=== PATIENT | female | born 1975 | race American Indian/Alaskan Native ===

== ENCOUNTER 2017-10-25 16:24 | Emergency (ER) | payer OTHER ==
[2017-10-25] MEDS ORDERED: NORCO 5/325 PO ONE (21:16)
[2017-10-25] MEDS ORDERED: TRIPLE ANTIBIOTIC TP ONE (21:17)
[2017-10-25] MEDS ORDERED: MOTRIN PO ONE (21:17)
[2017-10-25] MEDS ORDERED: BOOSTRIX IM ONE (21:17)
[2017-10-25] MEDS ORDERED: XYLOCAINE 2% INFILTRATI ONE (21:18)
--- NOTE | 2017-10-25 21:18 | Emergency Department Report ---
ED Laceration [facility] Chief Complaint: Wound/Laceration Stated Complaint: RIGHT MIDDLE FINGER LACERATION Time Seen by Provider: 10/25/17 21:16 Occurred When: Today Location: Upper Extremity (right distal middle finger) Tetanus Status: Not up to Date Laceration Symptoms: Yes Pain, No Foreign Body Sensation, No Numbness, No Weakness Other History: 42-year-old female past medical history none presents with laceration to right distal middle fingertip. Patient works in a [employer] and states that she cut the fingertip on a soaker meat today. Patient has visible laceration at distal end of middle fingertip at edge of the nail. Active bleeding. Tetanus shot vaccination status not up-to-date as per patient. Denies any other injuries ED Review of Systems ROS: Stated complaint: RIGHT MIDDLE FINGER LACERATION Other details as noted in HPI ED Past Medical Hx - Past Medical History Previous Medical History?: No - Surgical History Past Surgical History?: No - Social History Smoking Status: Current Every Day Smoker Substance Use Type: None - Medications Home Medications: Home Medications Medication Instructions Recorded Confirmed Last Taken Type Acetaminophen/Codeine [Tylenol 1 tab PO Q6H PRN #10 tab 10/25/17 Unknown Rx /Codeine # 3 tab] Cephalexin [Keflex] 500 mg PO Q12HR #14 cap 10/25/17 Unknown Rx Ibuprofen [Motrin] 600 mg PO Q8H PRN #30 tablet 10/25/17 Unknown Rx Laceration Physical Exam - Exam General: Vital signs noted. No distress. Alert and acting appropriately. Wound Length (cm): 2 Laceration Location: Upper Extremity (distal right middle fingertip) Laceration Exam: Yes Normal Distal CMS (finger range of motion PIP and MCP DIP and capillary refill fully intact on clinical exam no other hand injury visible) , No Foreign Body, No Exposed Tendon, Vessel, or Nerve, No Tendon Injury ED Course Vital Signs 10/25/17 16:28 Temperature 97.7 F Pulse Rate 82 Respiratory 16 Rate Blood Pressure 128/84 O2 Sat by Pulse 99 Oximetry - Laceration /Wound Repair Right Distal Finger Wound Location: upper extremity (distal right middle finger laceration below the nail edge not involving nail itself nail bed appears intact) Wound Length (cm): 2 Wound's Depth, Shape: linear Betadine Prep?: Yes Anesthesia: 1% Lidocaine Volume Anesthetic (ccs): 5 Wound Debrided: minimal Wound Repaired With: sutures Suture Size/Type: 3:0, nylon Number of Sutures: 6 Sterile Dressing Applied?: Yes ( triple antibiotic ointment, Steri-Strips, finger gauze) Progress: Digital block performed on right distal middle finger. Good local anesthesia achieved. Good closure of wound achieved with Prolene sutures. Small area closed using Steri-Strips. Procedure tolerated well with minimal bleeding. Cooperative with gauze afterward. ED Medical Decision Making - Medical Decision Making A/P: Right distal middle fingertip laceration 1-good closure of the wound achieved via sutures. Sutures to be removed in 10- 12days 2-tetanus updated today 3-Motrin when necessary, triple antibiotic ointment, short course Tylenol No. 3 when necessary, course of Keflex 4-patient advised to return to the ED for any fevers chills pus drainage erythema at site of laceration Critical care attestation.: If time is entered above; I have spent that time in minutes in the direct care of this critically ill patient, excluding procedure time. ED Disposition Clinical Impression: Laceration of finger Qualifiers: Encounter type: initial encounter Finger: middle finger Damage to nail status: without damage Foreign body presence: without foreign body Laterality: right Qualified Code(s): S61.212A - Laceration without foreign body of right middle finger without damage to nail, initial encounter Disposition: TO HOME OR SELFCARE Is pt being admited?: No Does the pt Need Aspirin: No Condition: Stable Instructions: Suture Care (ED), Laceration (ED), Acute Wound Care (ED), Finger Laceration (ED) Additional Instructions: Sutures to be removed in 10-12 days. Prescriptions: Acetaminophen/Codeine [Tylenol /Codeine # 3 tab] 1 tab PO Q6H PRN #10 tab PRN Reason: Pain Cephalexin [Keflex] 500 mg PO Q12HR #14 cap Ibuprofen [Motrin] 600 mg PO Q8H PRN #30 tablet PRN Reason: Pain Referrals: [facility] [Outside] - 3-5 Days [facility] [Outside] - 3-5 Days Forms: Accompanied Note, Work/School Release Form(ED) Time of Disposition: 22:54
--- NOTE | 2017-10-25 23:17 | XRay Report ---
FINAL REPORT PROCEDURE: XR FINGER(S) 2+V RT TECHNIQUE: RIGHT hand radiographs, AP, lateral, and oblique views. CPT 28357-TI HISTORY: distal middle finger laceration COMPARISON: No prior studies are available for comparison. FINDINGS: Fracture (s) and/or Dislocation(s): None . Alignment: Normal . Joint space(s): Normal . Soft tissues: Normal . Bone mineralization: Normal . Foreign bodies: None . IMPRESSION: Normal Examination .
[2017-10-26 01:39] VITALS: BP 123/82
== END 2017-10-26 01:31 | disposition home or self-care (01) ==
LOC: ED 16:24
DX: S61.212A Laceration without foreign body of right middle finger without damage to nail, initial encounter (principal); F17.200 Nicotine dependence, unspecified, uncomplicated; W45.8XXA Other foreign body or object entering through skin, initial encounter; Y93.89 Activity, other specified; Y92.89 Other specified places as the place of occurrence of the external cause; Y99.8 Other external cause status
CPT/HCPCS: 90471; 90715; A6250

== ENCOUNTER 2018-04-23 17:20 | Emergency (ER) | payer MEDICAID, OTHER ==
[2018-04-23 17:44] VITALS: BP 115/60
[2018-04-23] MEDS ORDERED: MOTRIN PO ONE (21:47)
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
== END 2018-04-23 23:45 | disposition home or self-care (01) ==
LOC: ED 17:20
DX: S63.602A Unspecified sprain of left thumb, initial encounter (principal); F17.200 Nicotine dependence, unspecified, uncomplicated; X58.XXXA Exposure to other specified factors, initial encounter; Y93.89 Activity, other specified; Y92.89 Other specified places as the place of occurrence of the external cause; Y99.8 Other external cause status
CPT/HCPCS: 99283